=== PATIENT | female | born 1995 | race Caucasian/White ===

== ENCOUNTER 2022-01-10 05:21 | Emergency (ER) | payer MEDICAID ==
[~2022-01-10] VITALS: Ht 165.1 cm; Wt 55.7 kg
[2022-01-10] MEDS ORDERED: KETOROLAC 30MG/ML VIAL IV STA (07:14)
[2022-01-10] MEDS ORDERED: ACETAMINOPHEN 325MG TABLET PO STA ×2 (07:14→11:31)
[2022-01-10] MEDS ORDERED: ONDANSETRON HCL 4MG/2ML INJ IV STA (07:14)
[2022-01-10] MEDS ORDERED: SODIUM CHLORIDE 0.9% 1,000 ML IV ONE ×2 (07:15→11:45)
[2022-01-10 07:35] LABS: CLARITY URINE CLEAR (CLEAR); COLOR URINE YELLOW (YELLOW); KETONES URINE TRACE (NEGATIVE); LEUKOCYTE ESTERASE URINE TRACE (NEGATIVE); NITRITE URINE NEGATIVE (NEGATIVE); OCCULT BLOOD URINE NEGATIVE (NEGATIVE); PROTEIN URINE TRACE (NEGATIVE); SPECIFIC GRAVITY URINE 1.032 (1.005-1.030)
[2022-01-10 09:18] LABS: BASOPHILS % 0.7 % (0.0-2.0); EOSINOPHILS % 0.5 % (0.0-5.0); HEMATOCRIT. 37.9 % (36.0-48.0); LYMPHOCYTES % 10.2 % (20.0-50.0); MEAN CORPUSCULAR HEMOGLOBIN 21.5 pg (28.0-32.0); MEAN CORPUSCULAR VOLUME 67.9 fL (81.0-99.0); MEAN PLATELET VOLUME 7.9 fl (7.4-10.4); NEUTROPHILS % 80.6 % (40.0-76.0); PLATELET 343 x1000/uL (130-400); RED BLOOD CELL COUNT 5.58 mill/uL (4.2-5.4); RED CELL DISTRIBUTION WIDTH 18.7 % (11.6-14.6)
[2022-01-10 09:27] LABS: HCG SCREEN NEGATIVE
[2022-01-10 09:31] LABS: CHLORIDE 104 mEq/L (98-107)
[2022-01-10 11:06] LABS: PLATELET ESTIMATE NORMAL
[2022-01-10] MEDS ORDERED: ONDA4TAB11 PO (14:29)
[2022-01-10 15:00] VITALS: BP 100/57
== END 2022-01-10 15:00 | disposition home or self-care (01) ==
LOC: ER 05:21
DX: R11.2 Nausea with vomiting, unspecified (principal); R10.30 Lower abdominal pain, unspecified; R19.7 Diarrhea, unspecified
CPT/HCPCS: 36415; 74176; 76830; 76856; 80053; 81003; 81025; 82962; 83690; 84703; 85025; 93976; 96361; 96374; 96375; 99285; J1885; J2405; J7030